=== PATIENT | male | born 1930 | race Caucasian/White ===

== ENCOUNTER → 2016-08-28 | Outpatient (CLI) | payer OTHER ==
[~2016-08-28] MED LIST: ACET-1138 PO; ALBUAER INH; ASPI81TA28 PO; CLB200 PO; CMD3 PO; DOFE250C PO; IPRASOL4 INH; LISI10TA PO; METO25TA56 PO; MOME200A INH; OXGN; OXYSR10 PO; PRED10TA PO; PRS5 PO; RXC5 PO; SIMV40TA2 PO; TAMS0.4C59 PO
--- NOTE | 2016-08-30 08:54 | PULMONARY FUNCTION TEST ---
SPIROMETRY: Moderately severe obstructive ventilatory disease with an FEV1 of 52% predicted. Post-bronchodilator spirometry shows no significant reversibility.
== END | disposition home or self-care (01) ==
LOC: C.RC 13:41
PROVIDERS: ATTEND Internal Medicine Critical Care Medicine
DX: J44.9 Chronic obstructive pulmonary disease, unspecified (principal); R06.02 Shortness of breath

== ENCOUNTER → 2016-09-25 | Outpatient (CLI) | payer OTHER ==
--- NOTE | 2016-09-25 14:10 | DIAGNOSTIC IMAGING REPORT ---
CHEST CT WITHOUT CONTRAST CT DOSE: 374.26 mGy.cm HISTORY: Nodule R91.1 Solitary pulmonary nodule APPT SCHEDE 09-25-16 @ 1:40 E X0D TECHNIQUE: Multiaxial CT images of the chest were performed without contrast. COMPARISON: 01/05/2014 FINDINGS: Slight increase in distention of the root of the aorta. Maximal diameter currently is 4.4 cm. Prior measurement was 4.2 cm. No significant hilar or mediastinal adenopathy. Lungs demonstrate emphysematous change. There are areas of pleural thickening as well as scarring of the right major fissure. All findings are similar. There does not appear to be evidence for new interval or progressive nodular component. There are no focal infiltrative changes. IMPRESSION: 1. Emphysematous change. 2. Chronic fibrotic scarring. 3. No significant pulmonary nodularity on the current study. 4. Slight increase in diameter of the aortic root now measuring 4.4 cm Electronically signed by: Anatoly Patel M.D. 09/25/2016 2:09 PM Dictated Date/Time: 09/25/2016 2:04 PM
== END | disposition home or self-care (01) ==
LOC: C.CTS 13:28
PROVIDERS: ATTEND Internal Medicine Critical Care Medicine
DX: R91.1 Solitary pulmonary nodule (principal)

== ENCOUNTER → 2017-08-22 | Outpatient (CLI) | payer OTHER ==
[~2017-08-22] MED LIST changes: -ACET-1138 PO; -CLB200 PO; -OXYSR10 PO; -PRED10TA PO
[2017-08-22 14:35] VITALS: BP_SYST 158; BP_SYST 173; BP_SYST 180; BP_DIAS 71; BP_DIAS 89; BP_DIAS 92; PULSE 76; TEMP 36.3; O2SAT 92
--- NOTE | 2017-08-22 15:48 | Radiation Oncology Follow-Up ---
Radiation Oncology Follow-Up Date of Visit Aug 22, 2017. Reason For Visit One-month follow-up Radiation Completion Date 07/23/17 Diagnosis (1) Squamous cell carcinoma of back Status: Resolved Onset Date: 04/09/2017 Permanent Comment: Development of a lesion of the left back. Status post biopsy 04/09/2017 revealing moderately different radiated invasive squamous cell carcinoma Status post excision on 04/24/2017. Invasive squamous cell carcinoma moderately differentiated Stage pT2 He completed radiation July 23, 2017. He received 5000 cGy utilizing electron therapy. Last Edited By: Lucrecia Perez on Jul 30, 2017 09:49 History of Present Illness Mr. Eckert presented with an abnormal lesion on his left mid back. 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 The patient was seen by Dr. Griggs from dermatologic surgery at [facility] in [place], [place]. The patient underwent a shave biopsy of the left back by Dr. Griggs on 04/09/2017 which revealed moderately differentiated basis, cell carcinoma that extended to the deep inked edge of the specimen. Dr. Griggs performed a wide local excision of the left back lesion on 04/24/2017 which revealed invasive squamous cell carcinoma that was moderately differentiated with perineural invasion extending into the subcutaneous adipose tissue and measured 2.3 cm in the greatest dimension; the tumor was measured to be 8 mm in thickness and was ulcerated. The margins were negative and the closest margin was 5 mm. The tumor was staged as pathologic T2. Dr. Griggs recommended consideration of adjuvant radiation therapy given the rapid progression of the tumor in size, depth as well as the perineural invasion. We are now seeing the patient in consultation discuss role of radiation therapy. In general, the patient to relatively well. He states his surgery scar has healed well. He will be seeing Dr. Griggs in follow-up. He completed radiation July 23, 2017. He received 5000 cGy utilizing electron therapy. Interim History He has been doing well over the past 2 weeks. He was seen weekly 2 weeks following treatment due to skin reaction. This steadily improved with the use of Silvadene cream. The skin has now completely healed over. He is noted no masses or tenderness. He will be seeing the c software engineer in approximately 1 month. He is using moisturizers daily for his dry skin. At his skin recheck visit he had mentioned issues with wrist discomfort. He did see his primary care provider and had x-rays. There is no cause that could be determined at this time. He does have pain medication available. 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 Allergies Coded Allergies: No Known Allergies (Unverified , 04/12/16) Home Medications Scheduled Aspirin (Aspirin Ec), 81 MG PO MWF Dofetilide (Tikosyn), 250 MCG PO BID Finasteride (Proscar), 5 MG PO HS Lisinopril (Prinivil), 20 MG PO HS Metoprolol Tartrate (Lopressor) (Lopressor), 25 MG PO BID Mometasone Furoate-Formoterol (Dulera 200/5 Mcg), 2 PUFFS INH BID Simvastatin (Zocor), 40 MG PO QPM Tamsulosin Hcl (Flomax), 0.4 MG PO QAM Warfarin Sod (Coumadin), 1 TAB PO QAM Scheduled PRN Albuterol (Proventil Hfa), 2 PUFFS INH Q4 PRN for SOB/Wheezing Home O2 Therapy (Oxygen), 2-3 LITERS NA PRN PRN for ACTIVITY Ipratropium-Albuterol (Duoneb), 1 TREATMENT INH Q4H PRN for SOB/Wheezing Oxycodone HCl (Oxycodone HCl), 5-10 MG PO Q4H PRN for Pain Review of Systems Gastrointestinal: Symptoms: WNL Oral: Symptoms: No Problems Respiratory: Symptoms: SOB With Exertion Other Respiratory: 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 There is a oval area where he had previously had dermatitis. This is completely healed. There is no wet or dry desquamation. There are no signs of infection. There is no tenderness or masses. Pain Management Patient Reports Pain: Yes Pain Location: Knee Initial Pain Intensity: 3.0 Pain Management Plan He also has pain in his wrists. He has oxycodone as well as [id number] analgesics which helped to relieve the discomfort. This is followed by the primary care physician. He does not require any pain management through our office. Laboratory Laboratory Results: not applicable Pathology Pathology Results: were reviewed, and pertinent findings noted in HPI Imaging Imaging Studies: not applicable Assessment & Plan Plan: The patient is also seen and examined by Dr. Escalera. He should continue moisturizers of the skin. He is going to continue follow-up with dermatology. He has an appointment in approximately 1 month. Continue follow-up with primary care provider. He did have some questions and issues to discuss in regards to billing. This she was referred to Ban Armenta RN who will look into the problems that he is having with his bill. If necessary he will be referred to patient navigation or billing. He will return to our office in 6 months. He may call if he has any questions or concerns in the interim. Assessment & Plan (Attending) I agree with note created by Lucrecia Perez PA-C. I reviewed the patient's chart and information with her. I have examined and evaluated the patient. I reviewed relevant clinical information and answered the patient's and/or family' s questions. SEQUINS SLINGER Total Time In Follow-Up I spent 20 minutes speaking to the patient and performing examination. I spent 15 minutes reviewing information and completing this note. AK Total Time (Attending) In Follow-Up I spent 15 minutes examining and counseling the patient. SEQUINS SLINGER Copy To Brendon Griggs MD; Zbigniew Curiel D.O.
== END | disposition home or self-care (01) ==
LOC: C.ONC 14:31
PROVIDERS: ATTEND Physician Assistant Medical
DX: Z08 Encounter for follow-up examination after completed treatment for malignant neoplasm (principal); Z92.3 Personal history of irradiation; Z85.828 Personal history of other malignant neoplasm of skin